=== PATIENT | female | born 1940 ===

== ENCOUNTER 2024-07-13 08:57 | Emergency (ER) | payer MEDICARE, OTHER ==
[~2024-07-13] VITALS: Ht 162.6 cm; Wt 55.0 kg
[2024-07-13 09:25] VITALS: PULSE 87; RESP 16; O2SAT 95
[2024-07-13 12:40] VITALS: BP 147/60; PULSE 80; RESP 17; TEMP 98; O2SAT 96
[2024-07-13 12:58] LABS: Basophils # (auto) 0 10 ^3/uL (0-0.2); Basophils % (auto) 0.2 % (0.0-2.0); Eosinophils # (auto) 0 10 ^3/uL (0-0.8); Eosinophils % (auto) 0.1 % (0.0-7.0); Hematocrit 41.8 % (36.0-46.0); Hemoglobin 13.9 g/dL (12.2-16.2); Lymphocytes # (auto) 1.4 10 ^3/uL (0.4-5.4); Lymphocytes % (auto) 12.2 % (10.0-50.0); Mean Corpuscular Hemoglobin 30.4 pg (28.0-32.0); Mean Corpuscular Hgb Conc. 33.3 g/dL (32.0-36.0); Mean Corpuscular Volume 91.3 fL (80.0-100.0); Monocytes # (auto) 0.9 10 ^3/uL (0-1.3); Monocytes % (auto) 7.7 % (0.0-12.0); Neutrophils % (auto) 79.8 % (37.0-80.0); Nucleated Red Blood Cells % 0.1 %; Platelet Count (auto) 200 10^3/uL (140-450); Red Blood Cells 4.57 10^6/uL (4.0-5.20); Red Cell Distribution Width 14.7 % (11.8-14.3); White Blood Cell 11.3 10^3/uL (4.4-10.8)
[2024-07-13 13:13] LABS: INR 0.97 (0.9-1.15); Partial Thromboplastin Time 24.7 SEC (24.5-34.5); Prothrombin Time 10.3 sec (9.3-11.8)
[2024-07-13 13:21] LABS: Alanine Aminotransferase 25 U/L (7-40); Albumin 4.4 g/dL (3.2-4.8); Alkaline Phosphatase 68 U/L (46-116); Anion Gap 9 (5-15); Aspartate Aminotransferase 64 U/L (13-40); BUN/Creatinine Ratio 11.5 (10.0-20.0); Bilirubin, Total 0.9 mg/dL (0.2-1.0); Blood Urea Nitrogen 10 mg/dL (9-23); Calcium 9.8 mg/dL (8.7-10.4); Carbon Dioxide 22 mmol/L (20-31); Chloride 107 mmol/L (98-107); Glucose 105 mg/dL (74-106); Potassium 4.1 mmol/L (3.5-5.1); Sodium 138 mmol/L (136-145)
[2024-07-13 13:22] LABS: Total Protein 7.1 g/dL (5.7-8.2)
== END 2024-07-13 13:21 | disposition short-term general hospital (02) ==
LOC: EDBD 08:57 → ER 08:57 → EDUNIT# 08:57 → ER 13:21
DX: S06.300A Unspecified focal traumatic brain injury without loss of consciousness, initial encounter (principal); M25.512 Pain in left shoulder; R53.1 Weakness; M54.2 Cervicalgia; Z79.82 Long term (current) use of aspirin; Z88.2 Allergy status to sulfonamides; W18.39XA Other fall on same level, initial encounter; Y93.89 Activity, other specified; Y92.89 Other specified places as the place of occurrence of the external cause; Y99.8 Other external cause status
CPT/HCPCS: 36415; 70450; 72125; 72192; 73030; 73060; 80053; 85025; 85610; 85730; 93005; 99291